=== PATIENT | male | born 1985 ===

== ENCOUNTER 2022-04-08 20:03 | Emergency (ER) | payer SELFPAY ==
--- NOTE | 2022-04-08 21:31 | EDPHYS ---
Physician Documentation [facility] Name: Rob Menezes Age: 36 yrs Sex: Male : 1985 Arrival Date: 04/08/2022 Time: 20:11 Bed 11 Private MD: NAIF Physician Norm Couch HPI: 04/08 21:30 This 36 yrs old Male presents to ER via Ambulatory with complaints of Ear Pain. pm1 21:30 The patient presents with pain. The complaints affect the right ear. Onset: The pm1 symptoms/episode began/occurred 1 week(s) ago. Modifying factors: The symptoms are alleviated by nothing, the symptoms are aggravated by touching. Associated signs and symptoms: The patient has no apparent associated signs or symptoms, Pertinent negatives: cough, fever, sore throat. Severity of symptoms: in the emergency department the symptoms are unchanged. The patient has not experienced similar symptoms in the past. The patient has not recently seen a physician. Historical: - Allergies: 20:36 No Known Allergies; lp1 - Home Meds: 20:36 None [Active]; lp1 - PMHx: 20:36 None; lp1 - PSHx: 20:36 None; lp1 - Immunization history:: Adult Immunizations up to date, Client reports having NOT received the Covid vaccine. - Social history:: Smoking status: Patient reports the use of cigarette tobacco products, smokes one pack cigarettes per day. ROS: 21:30 Constitutional: Negative for fever, chills, and weight loss, Cardiovascular: Negative pm1 for chest pain, palpitations, and edema. 21:30 Respiratory: Negative for shortness of breath, cough, wheezing, and pleuritic chest pain, Abdomen/GI: Negative for abdominal pain, nausea, vomiting, diarrhea, and constipation, MS/Extremity: Negative for injury and deformity, Skin: Negative for injury, rash, and discoloration. 21:30 Neuro: Negative for headache, weakness, numbness, tingling, and seizure. 21:30 ENT: Positive for ear pain, Negative for sore throat. 21:30 All other systems are negative. Exam: 21:30 Constitutional: This is a well developed, well nourished patient who is awake, alert, pm1 and in no acute distress. Head/Face: Normocephalic, atraumatic. 21:30 Neck: Trachea midline, no thyromegaly or masses palpated, and no cervical lymphadenopathy. Supple, full range of motion without nuchal rigidity, or vertebral point tenderness. No Meningismus. 21:30 Skin: Warm, dry with normal turgor. Normal color with no rashes, no lesions, and no evidence of cellulitis. MS/ Extremity: Pulses equal, no cyanosis. Neurovascular intact. Full, normal range of motion. 21:30 ENT: External ear(s): no acute changes, Ear canal(s): swelling, that is moderate, of the right canal, TM's: bulging, on the right, erythema, that is mild, Examination of the other ear shows no obvious abnormality, Posterior pharynx: no acute changes. 21:30 Cardiovascular: Exam negative for acute changes, Rate: Rhythm: regular, Pulses: no pulse deficits are appreciated. 21:30 Respiratory: Exam negative for acute changes, respiratory distress, shortness of breath. 21:30 Neuro: Exam negative for acute changes, Orientation: is normal, Mentation: is normal, Motor: is normal, moves all fours. Vital Signs: 20:36 BP 146 / 88; Pulse 84; Resp 18; Temp 98.3(O); Pulse Ox 96% on R/A; Weight 89.81 kg (R); lp1 Height 5 ft. 7 in. (170.18 cm); Pain 8/10; 20:36 Body Mass Index 31.01 (89.81 kg, 170.18 cm) lp1 MDM: 20:44 Patient medically screened. [facility] 21:26 Data reviewed: vital signs. Data interpreted: Pulse oximetry: on room air is 96 %. pm1 Interpretation: normal. Counseling: I had a detailed discussion with the patient and/or guardian regarding: the historical points, exam findings, and any diagnostic results supporting the discharge/admit diagnosis, the need for outpatient follow up, to return to the emergency department if symptoms worsen or persist or if there are any questions or concerns that arise at home. Administered Medications: 21:38 Drug: [place] (HYDROcodone-acetaminophen) 10 mg-325 mg 1 tabs Route: PO; jb4 21:38 Follow up: Response: Medication administered at discharge. jb4 Disposition Summary: 04/08/22 21:30 Discharge Ordered Location: Home pm1 Problem: new pm1 Symptoms: have improved pm1 Condition: Stable pm1 Diagnosis - Otitis media, unspecified, right ear pm1 - Unspecified otitis externa, right ear pm1 Followup: pm1 - With: Emergency Department - When: As needed - Reason: Worsening of condition Followup: pm1 - With: Private Physician - When: 2 - 3 days - Reason: Recheck today's complaints, Continuance of care, Re-evaluation by your physician Discharge Instructions: - Discharge Summary Sheet pm1 - Ear Drops, Adult pm1 - Otitis Media, Adult pm1 - Otitis Externa pm1 Forms: - Medication Reconciliation Form pm1 - Thank You Letter pm1 - Antibiotic Education pm1 - Prescription Opioid Use pm1 Prescriptions: - Amoxicillin 500 mg Oral Capsule - take 1 capsule by ORAL route every 8 hours for 10 days; 30 tablet; Refills: 0, pm1 Product Selection Permitted - Hydrocortisone/neomycin/polymyxin otic suspension 10 mg (1%) / 3.5 mg (0.35%)/10,000 units / 10 mL - instill 4 drop by OTIC route every 6 hours for 10 days; 10 milliliter; Refills: pm1 0, Product Selection Permitted - Tramadol 50 mg Oral Tablet - take 1 tablet by ORAL route every 8 hours as needed; 12 tablet; Refills: 0, pm1 Product Selection Permitted Signatures: Norm Couch MD MD cha Pena, Laura, RN RN lp1 Hakeem Buckner, [employer] ENGINEER pm1 Ethan Gardner RN RN jb4
--- NOTE | 2022-04-08 21:31 | ER ---
Nurse's Notes [facility] Name: Rob Menezes Age: 36 yrs Sex: Male : 1985 Arrival Date: 04/08/2022 Time: 20:11 Bed 11 Private MD: Diagnosis: Otitis media, unspecified, right ear;Unspecified otitis externa, right ear Presentation: 04/08 20:34 Chief complaint: Patient states: Right ear pain x 1 week; Denies any cough, cold, lp1 congestion, fever. Coronavirus screen: At this time, the client does not indicate any symptoms associated with coronavirus-19. Ebola Screen: No symptoms or risks identified at this time. Risk Assessment: Do you want to hurt yourself or someone else? Patient reports no desire to harm self or others. Onset of symptoms was April 08, 2022. 20:34 Method Of Arrival: Ambulatory lp1 20:34 Acuity: ANDREI 4 lp1 20:36 Initial Sepsis Screen: Does the patient meet any 2 criteria? No. Patient's initial lp1 sepsis screen is negative. Does the patient have a suspected source of infection? No. Patient's initial sepsis screen is negative. Historical: - Allergies: 20:36 No Known Allergies; lp1 - Home Meds: 20:36 None [Active]; lp1 - PMHx: 20:36 None; lp1 - PSHx: 20:36 None; lp1 - Immunization history:: Adult Immunizations up to date, Client reports having NOT received the Covid vaccine. - Social history:: Smoking status: Patient reports the use of cigarette tobacco products, smokes one pack cigarettes per day. Screenin:00 Abuse screen: Denies threats or abuse. Nutritional screening: No deficits noted. jb4 Tuberculosis screening: No symptoms or risk factors identified. Fall Risk None identified. Assessment: 21:00 General: Appears in no apparent distress. comfortable, Behavior is calm, cooperative, jb4 appropriate for age. Pain: Complains of pain in right ear Pain does not radiate. Pain currently is 4 out of 10 on a pain scale. Neuro: Level of Consciousness is awake, alert, obeys commands, Oriented to person, place, time, situation. Cardiovascular: Patient's skin is warm and dry. Respiratory: Airway is patent Respiratory effort is even, unlabored, Respiratory pattern is regular, symmetrical. EENT: Ear canal clear on right ear. Derm: Skin is intact, Skin is pink, warm \T\ dry. Musculoskeletal: Circulation, motion, and sensation intact. Range of motion: intact in all extremities. Vital Signs: 20:36 BP 146 / 88; Pulse 84; Resp 18; Temp 98.3(O); Pulse Ox 96% on R/A; Weight 89.81 kg (R); lp1 Height 5 ft. 7 in. (170.18 cm); Pain 8/10; 20:36 Body Mass Index 31.01 (89.81 kg, 170.18 cm) lp1 ED Course: 20:11 Patient arrived in ED. ag3 20:35 Triage completed. lp1 20:35 Arm band placed on left wrist. lp1 20:42 Hakeem Buckner NP is PHCP. pm1 20:42 Norm Couch MD is Attending Physician. pm1 21:00 Patient has correct armband on for positive identification. Bed in low position. Call jb4 light in reach. Side rails up X 1. 21:00 No provider procedures requiring assistance completed. Patient did not have IV access jb4 during this emergency room visit. 21:36 Ethan Gardnre, RN is Primary Nurse. jb4 Administered Medications: 21:38 Drug: [place] (HYDROcodone-acetaminophen) 10 mg-325 mg 1 tabs Route: PO; jb4 21:38 Follow up: Response: Medication administered at discharge. jb4 Medication: 21:00 VIS not applicable for this client. jb4 Outcome: 21:30 Discharge ordered by . pm1 21:44 Discharged to home ambulatory, with family. jb4 21:44 Condition: stable 21:44 Discharge instructions given to patient, Instructed on discharge instructions, follow up and referral plans. medication usage, Demonstrated understanding of instructions, follow-up care, medications, Prescriptions given X 1. 21:45 Patient left the ED. jb4 Signatures: Brook Mackey RN RN lp1 Hakeem Buckner NP [employer] pm1 Ethan Gardner RN RN jb4 Ariadna Kasper ag3 Corrections: (The following items were deleted from the chart) 20:38 20:36 Temp 98.3F Oral; 89.81 kg Reported; Height 5 ft. 7 in.; BMI: 31.0; Pain 8/10; lp1 lp1
[2022-04-08] MEDS ORDERED: HYDROCODONE/APAP 10/325 TAB ONE (21:44)
[2022-04-08 21:51] VITALS: BP 146/88; TEMP 98.3; O2SAT 96
== END 2022-04-08 21:45 | disposition home or self-care (01) ==
LOC: ER 20:03
DX: H66.91 Otitis media, unspecified, right ear (principal); H60.91 Unspecified otitis externa, right ear; F17.210 Nicotine dependence, cigarettes, uncomplicated
CPT/HCPCS: 99283